=== PATIENT | female | born 1980 | race American Indian/Alaskan Native ===

== ENCOUNTER 2018-11-13 18:08 | Emergency (ER) | payer OTHER ==
[2018-11-13] MEDS ORDERED: TORADOL IM ONE (21:38)
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
--- NOTE | 2018-11-13 22:16 | XRay Report ---
Rib series 3 views INDICATION: Right rib pain following injury. Left rib pain. IMPRESSION: No displaced rib fracture identified. Signer Name: Alvaro James MD Signed: 11/13/2018 10:12 PM Workstation Name: [id number]
--- NOTE | 2018-11-13 22:16 | XRay Report ---
Cervical spine complete 5 views INDICATION: Neck pain following injury IMPRESSION: No fracture or subluxation of the cervical spine is identified. Of note, there is some ea rly atherosclerotic disease identified within the left distal common carotid artery. Signer Name: Alvaro James MD Signed: 11/13/2018 10:12 PM Workstation Name: [id number]
[2018-11-13 22:35] VITALS: BP 118/82
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
== END 2018-11-14 01:20 | disposition home or self-care (01) ==
LOC: ED 18:08
DX: S16.1XXA Strain of muscle, fascia and tendon at neck level, initial encounter (principal); S29.011A Strain of muscle and tendon of front wall of thorax, initial encounter; M54.5 Low back pain; Z79.899 Other long term (current) drug therapy; Z88.2 Allergy status to sulfonamides; V89.2XXA Person injured in unspecified motor-vehicle accident, traffic, initial encounter; Y93.89 Activity, other specified; Y92.488 Other paved roadways as the place of occurrence of the external cause; Y99.8 Other external cause status
CPT/HCPCS: 71101; 72040; 72100; 72131; 96372; 99284; J1885

== ENCOUNTER 2020-06-02 16:53 | Emergency (ER) | payer OTHER ==
[2020-06-02 17:07] VITALS: BP 147/101
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
== END 2020-06-02 18:53 | disposition home or self-care (01) ==
LOC: ED 16:53
DX: S16.1XXA Strain of muscle, fascia and tendon at neck level, initial encounter (principal); I10 Essential (primary) hypertension; K21.9 Gastro-esophageal reflux disease without esophagitis; J45.909 Unspecified asthma, uncomplicated; Z79.899 Other long term (current) drug therapy; Z88.2 Allergy status to sulfonamides; V49.49XA Driver injured in collision with other motor vehicles in traffic accident, initial encounter; Y93.89 Activity, other specified; Y92.488 Other paved roadways as the place of occurrence of the external cause; Y99.8 Other external cause status
CPT/HCPCS: 99281